=== PATIENT | male | born 1960 | race Caucasian/White ===

== ENCOUNTER 2017-11-27 11:34 | Outpatient (CLI) | payer BC | END 2017-11-27 11:35 | disposition home or self-care (01) | LOC: BICRAD 11:34 | PROVIDERS: ATTEND Specialist | DX: J44.9 Chronic obstructive pulmonary disease, unspecified (principal); M25.572 Pain in left ankle and joints of left foot | CPT/HCPCS: 71046 ==

== ENCOUNTER 2021-06-12 10:58 | Outpatient (CLI) | payer BC ==
[2021-06-12 12:15] LABS: Hemoglobin 15.2 g/dL (13.5-17.5); Mean Corpuscular HGB CONC 33.3 g/dL (32.0-36.0); Mean Corpuscular Hemoglobin 31.3 pg (27.0-33.0); Mean Platelet Volume 10.9 fl (7.4-10.4); Platelet Count 227 10x3/uL (150-450); RBC Distribution Width 13.3 % (11.5-14.5); Red Blood Cell (RBC) Count 4.85 10x6/uL (4.32-5.72); White Blood Cell (WBC) Count 9.6 10x3/uL (3.5-10.5)
[2021-06-12 12:29] LABS: Bilirubin Neg (Negative); Blood, Urine Negative (Negative); Clarity Clear (Clear); Glucose, Urine (Dipstick) Normal (Negative); Ketone, Urine Negative (Negative); Leukocyte Negative (Negative); Nitrite Negative (Negative); Protein, Urine (Dipstick) Negative (Neg-Trace); Urobilinogen Normal mg/dL (Less than 2)
[2021-06-12 12:40] LABS: Anion Gap 15 mmol/L (10-20); BUN (Urea Nitrogen) 10 mg/dL (8.4-25.7); Calc. Creatinine Clearance 0 mL/min (70-130); Calcium 8.8 mg/dL (7.8-10.44); Carbon Dioxide 21 mmol/L (22-29); Chloride 111 mmol/L (98-107); Glucose 86 mg/dL (70-105); Potassium 4.7 mmol/L (3.5-5.1); Sodium 142 mmol/L (136-145)
[2021-06-12 12:54] LABS: RBC/HPF None Seen HPF (0-3)
[2021-06-12 20:37] LABS: SARS-CoV-2 PCR by NAA Not Detected (NotDetected)
== END 2021-06-12 10:59 | disposition home or self-care (01) ==
LOC: LABBT 10:58
PROVIDERS: ATTEND Urology
DX: Z01.818 Encounter for other preprocedural examination (principal); N43.40 Spermatocele of epididymis, unspecified; Z20.822 Contact with and (suspected) exposure to COVID-19
CPT/HCPCS: 80048; 81001; 85027; 87086; 93005; 93010; U0003; U0005

== ENCOUNTER 2021-06-14 06:22 | Day surgery (SDC) | payer BC ==
[2021-06-12 15:18] VITALS: BMI 25.1
[2021-06-14] MEDS ORDERED: Bupivacaine 0.25% HCL 30 ML VIAL ONE (06:31)
[2021-06-14] MEDS ORDERED: Fentanyl 100 MCG/2 ML VIAL ONE (06:47)
[2021-06-14] MEDS ORDERED: ceFAZolin 2 GM/DEX 5% 100 ML BAG ONE (06:56)
[2021-06-14] MEDS ORDERED: Propofol 1,000 MG/100 ML VIAL IV ONE (07:19)
[2021-06-14 07:24] LABS: Prothrombin Time 13.4 sec (12.0-14.7)
[2021-06-14 07:25] LABS: PTT 27.3 sec (22.9-36.1)
[2021-06-14] MEDS ORDERED: hydrALAZINE 20 MG/ML VIAL ONE (07:30)
[2021-06-14] MEDS ORDERED: Scopolamine 1.5 mg/72 hour Patch ONE (07:30)
[2021-06-14] MEDS ORDERED: Bacitracin Zinc Ointment 30 gm TUBE ONE (08:19)
== END 2021-06-14 10:29 | disposition home or self-care (01) ==
LOC: SDC 06:22
PROVIDERS: ATTEND Urology
PROC: 0VBK0ZZ Excision of Left Epididymis, Open Approach (ICD-10-PCS; principal; 2021-06-14)
PROC: 0VSB0ZZ Reposition Left Testis, Open Approach (ICD-10-PCS; principal; 2021-06-14)
DX: N43.42 Spermatocele of epididymis, multiple (principal); N43.3 Hydrocele, unspecified; F10.21 Alcohol dependence, in remission; J44.9 Chronic obstructive pulmonary disease, unspecified; E78.5 Hyperlipidemia, unspecified; Z79.899 Other long term (current) drug therapy; Z98.52 Vasectomy status
CPT/HCPCS: 36415; 85610; 85730; 88304; J0360; J2704; J3010; S0020